=== PATIENT | female | born 1965 | race Caucasian/White ===

== ENCOUNTER 2019-06-14 00:14 | Emergency (ER) | payer MEDICAID ==
[~2019-06-14] VITALS: Ht 157.5 cm; Wt 96.2 kg
[2019-06-14 00:18] VITALS: Ht 157.5 cm; Wt 96.2 kg
[2019-06-14 01:00] LABS: PLATELET COUNT 254 x10^3mcL (130-400); RED CELL DISTRIBUTION WIDTH 14.2 % (11.5-14.5)
[2019-06-14 01:10] LABS: microscopic required? NO
[2019-06-14 01:12] LABS: CALCIUM 9.6 mg/dL (8.5-10.1); CARBON DIOXIDE 28.1 mmol/L (21-32); CHLORIDE SERUM 108 mmol/L (98-107); CREATININE SERUM 0.9 mg/dL (0.6-1.0); GFR1 > 60 mL/min; GLUCOSE SERUM 104 mg/dL (74-106); POTASSIUM SERUM 4.4 mmol/L (3.5-5.1); SODIUM SERUM 144 mmol/L (136-145)
[2019-06-14 01:17] LABS: ALBUMIN 3.7 g/dL (3.4-5.0); ALKALINE PHOSPHATASE 100 U/L (46-116); ALT/SGPT 39 U/L (14-59); AST/SGOT 28 U/L (15-37); BILIRUBIN TOTAL 0.21 mg/dL (0.20-1.00); HDL CHOLESTEROL 42 mg/dL (40-60); LIPASE 204 IU/L (73-393); TRIGLYCERIDES 110 mg/dL (<150)
[2019-06-14 01:18] LABS: CHOLESTEROL 202 mg/dL (<200); CHOLESTEROL/HDL RATIO 4.8; TOTAL PROTEIN, SERUM 8.3 g/dL (6.4-8.2)
[2019-06-14 01:22] LABS: T3 TOTAL 1.25 ng/mL
[2019-06-14 01:29] LABS: FREE T4 0.95 ng/dL (0.76-1.46); FREE THYROXINE INDEX 2.8 ug/dL (1.4-4.5)
[2019-06-14 02:04] LABS: UA SPECIFIC GRAVITY >=1.030 (1.005-1.035); urine erythrocyte NEGATIVE (NEGATIVE)
[2019-06-14 02:28] LABS: AMPHETAMINE QUAL UR NONE DETECTED (See below)
[2019-06-14 03:25] VITALS: BP 146/124
== END 2019-06-14 03:25 | disposition home or self-care (01) ==
LOC: ED 00:14
PROVIDERS: Specialist
DX: R55 Syncope and collapse (principal); T67.5XXA Heat exhaustion, unspecified, initial encounter; I10 Essential (primary) hypertension; X58.XXXA Exposure to other specified factors, initial encounter; Y93.89 Activity, other specified; Y92.89 Other specified places as the place of occurrence of the external cause; Y99.8 Other external cause status
CPT/HCPCS: 82962; 83880; 84439; J7030; Q0092